=== PATIENT | male | born 1965 | race Caucasian/White ===

== ENCOUNTER → 2019-04-30 12:05 | Outpatient (CLI) | payer BC, SELFPAY ==
--- NOTE | 2019-04-30 12:10 | XR_ITS ---
XR knee LT 3V HISTORY: ITS.REASON: LT KNEE PAIN ORDERING PHYSICIAN: Terry Harrison MD PATIENT AGE: 54 years COMPARISON: None FINDINGS: No fracture or dislocation. No lytic or blastic change. Normal mineralization. No significant arthritic changes evident. No other significant findings IMPRESSION: Negative Knee
--- NOTE | 2019-04-30 12:10 | XR_ITS ---
XR knee RT 3V HISTORY: ITS.REASON: RT KNEE PAIN ORDERING PHYSICIAN: Terry Harrison MD PATIENT AGE: 54 years COMPARISON: None FINDINGS: No fracture or dislocation. No lytic or blastic change. Normal mineralization. There are minimal osteoarthritic changes of the medial with minimal osteophyte formation medially. IMPRESSION: Minimal osteoarthritic change otherwise negative
== END ==
PROVIDERS: PCP Family Medicine; Visit Provider Family Medicine
DX: M25.561 Pain in right knee (principal); M25.562 Pain in left knee
CPT/HCPCS: 73562

== ENCOUNTER → 2021-06-04 10:15 | Outpatient (CLI) | payer BC, SELFPAY | PROVIDERS: Visit Provider Internal Medicine Gastroenterology | DX: Z01.812 Encounter for preprocedural laboratory examination (principal) | CPT/HCPCS: U0003 ==

== ENCOUNTER 2021-06-05 07:25 | Day surgery (SDC) | payer BC, SELFPAY ==
[2021-06-02 12:34] VITALS: BMI 30.7
[2021-06-05 07:45] VITALS: BP 113/77; PULSE 59; RESP 18; TEMP 36.3; O2SAT 97
--- NOTE | 2021-06-05 08:36 | HMH.ANESCL ---
[facility] Anesthesia Checklist - Patient Identification Patient Identification: Arm Band - Structural Data Admitted From: Home Planned Operative Procedure/s: egd Consent for Planned Operative Procedure(s) Verified: Yes Verified Documents: Surgical Consent, History and Physical - NPO Status Verified Time NPO: 00:00 - Additional verifications Anesthesia Reactions: No - Airway Assessment C-Spine Mobility Assessed: Yes (mp2) TMJ Mobility Assessed: Yes Dentition: Good Dentition - Neurological Assessment Level of Consciousness: Awake, Alert - Anesthesia Plan Anesthesia Risk discussed: Yes Anesthesia Plan: Verified ASA Class: II Anesthesia Type: MAC [facility] History I have reviewed the patient's past medical history: Yes Medical History: Denies:: Cancer, Diabetes Mellitus Type 1, Diabetes Mellitus Type 2, Internal Pacemaker, MRSA, Seizures *Have you ever received a pneumonia vaccine?: No *Have you received a flu vaccine this season?: No Anesthesia experience/problems:: nac Other Surgeries: Yes: Colon Resection. No: Pacemaker Amputation: No Fractures: No - *Social History Last grade of school completed: 9th or 10th Smoking Status: Current every day smoker Tobacco Type: smokeless tobacco # Packs/Day (cigarettes): 1 Alcohol Intake: never Substance Use Type: denies use *Occupational Status:: unemployed Housing: house Household Members: spouse, family *Travel in the last 8 weeks: None Family Hx:: No significant family history
--- NOTE | 2021-06-05 08:39 | HMH.PROC ---
[facility] Procedure Note Procedure Note:: Upper Endoscopy Procedure Report: Esophagogastroduodenoscopy with cold biopsies and TTS balloon dilation Endoscopost: Alvaro Hogue II, MD Referring Physician: Terry Harrison MD Date of Procedure: June 05, 2021 Equipment: Olympus GIF 190 standard upper endoscope Sedation: MAC sedation Indications: Mr. Wilson is a 56-year-old gentleman who is here for diagnostic evaluation of his dysphagia. He has had a prior Schatzki's ring dilated in December 2016 by me. He has had recurrent symptoms of solid food dysphagia over the last 3 to 4 months especially with chicken and steak. He reports no heartburn or reflux. He does have a history of Crohn's disease which was diagnosed nearly 25 years ago. He had prior ileocolonic resection at that time. He is not on any maintenance of remission therapy. His colonoscopy in December 2016 revealed moderately active Crohn's disease of the small intestine/ileum. He is clinically asymptomatic and reports no abdominal pain, diarrhea or rectal bleeding. He has had no recent labs. His colonoscopy in December 2016 did reveal a single tubular adenoma which was removed. He does state that his paternal grandmother had colon cancer in her 60s. He has had a previous history of B12 deficiency and iron deficiency. Procedure: Prior to the procedure, a history and physical exam was performed, and patient's medications and allergies were reviewed. The risks, benefits and alternatives of the sedation and procedure were discussed with the patient. All questions were answered and informed consent was obtained. The patient was brought to the procedure room. Patient identification and proposed procedure were verified by the physician and the nurse. The patient was placed in a left lateral decubitus position and the scope was passed under direct vision. Throughout the procedure, the patient's blood pressure, pulse, and oxygen saturations were monitored continuously. The upper GI endoscopy was accomplished without difficulty. The patient tolerated the procedure well. Findings: The scope was passed directly into the upper esophagus and advanced to the third portion of the duodenum. The post bulbar duodenum and duodenal bulb were normal with normal mucosa and conniventes. The scope was withdrawn through a normal duodenal bulb and pylorus into the stomach. There was some minimal reactive gastropathy of the antrum. The remainder of the body and fundus of the stomach were grossly normal. Upon retroflexion there was a very small sliding 1 to 2 cm hiatal hernia. The scope was then withdrawn into the esophagus. There was a distal Schatzki's ring. There was no evidence of reflux esophagitis or Guerrero's. Biopsies were taken from the distal esophagus to rule out eosinophilic esophagitis. This Schatzki's ring and entire esophagus was dilated to 60 Maltese/20 mm with a TTS hydrostatic balloon with shattering of the Schatzki's ring. The remainder of the esophageal mucosa was normal. Impression: 1. Schatzki's ring dilated to 20 mm 2. Very small sliding hiatal hernia Plan: I would encourage PPI therapy (omeprazole x3 months). I will follow-up the biopsies. The patient should have clinical improvement of his swallowing. I will obtain CRP, B12 and iron studies today. I would also check routine CBC and chemistries because of his chronic Crohn's ileitis. He will be due for surveillance colonoscopy again in December 2021.
[2021-06-05 08:51] VITALS: BP 111/72; PULSE 65; RESP 18; TEMP 36.1; O2SAT 98
[2021-06-05 09:00] VITALS: BP 104/66; PULSE 53; RESP 18; O2SAT 92
--- NOTE | 2021-06-05 09:04 | SUR.PHASEII ---
PER MD REPORT, WILL OBTAIN LABS THIS MORNING BEFORE DISCHARGE. WILL AWAIT MD TO COME TO BEDSIDE TO VERIFY ORDERS. PT WAKING, AT BEDSIDE, NO C/O AT THIS TIME.
[2021-06-05 09:11] VITALS: BP 106/58; PULSE 57; RESP 18; O2SAT 93
[2021-06-05 09:36] VITALS: BP 105/64; PULSE 57; RESP 18; O2SAT 95
[2021-06-05 09:46] VITALS: O2SAT 97
--- NOTE | 2021-06-05 09:46 | SUR.PHASEII ---
LAB AT BEDSIDE
[2021-06-05 09:57] LABS: Basophils # 0.1 K/mm3 (0-0.2); Basophils % 1.2 % (0.1-2.0); Eosinophils # 0.3 K/mm3 (0.0-0.4); Eosinophils % 3.2 % (0.1-12.0); Hematocrit 45.8 % (42.0-52.0); Hemoglobin 15.5 g/dL (14.1-18.0); Lymphocytes # 2.6 K/mm3 (0.7-4.5); Lymphocytes % 32.6 % (10-50); Mean Corpuscular HGB Conc 33.9 g/dL (31.8-35.4); Mean Corpuscular Hemoglobin 30.9 pg (27.0-31.2); Mean Platelet Volume 11.3 fl (7.4-10.4); Monocytes # 0.5 K/mm3 (0.1-1.0); Monocytes % 5.7 % (1.7-9.3); Neutrophils # 4.5 K/mm3 (1.8-7.8); Neutrophils % 57.3 % (37.0-80.0); Platelet Count 168 K/mm3 (142-424); Red Blood Count 5.03 M/mm3 (4.60-6.20); Red Cell Distribution Width 13.7 % (11.5-17.5); White Blood Count 7.8 K/mm3 (4.8-10.8)
[2021-06-05 10:02] LABS: Chloride 103 mmol/L (98-107); Potassium 3.7 mmoL/L (3.5-5.1); Sodium 141 mmol/L (136-145)
[2021-06-05 10:05] LABS: Alanine Aminotransferase 47 U/L (12-78); Albumin Level 4.4 g/dl (3.5-5.0); Albumin/Globulin Ratio 1.8 (1.1-1.8); Alkaline Phosphatase 55 U/L (38-126); Anion Gap 12.7 mEq/L (5-15); Aspartate Amino Transferase 47 U/L (17-59); Bilirubin,Total 0.9 mg/dl (0.2-1.3); Blood Urea Nitrogen 12 mg/dl (9-20); Calcium 9.3 mg/dl (8.4-10.2); Carbon Dioxide 29 mmol/L (22.0-30.0); Creatinine Clearance Estimated 83 mL/min (50-200); Estimated Glomerular Filt Rate 63 ml/min (>60); GFR (African American) 76 ML/MIN (>60); Globulin 2.4 g/dL (1.3-3.2); Glucose 97 mg/dl (74-100); Iron 126 ug/dL (49-181); Total Protein,Serum 6.8 g/dl (6.3-8.2)
[2021-06-05 10:14] LABS: Total Iron Binding Capacity 347 ug/dL (261-462)
[2021-06-05 10:43] LABS: Ferritin 274 ng/ml (17.9-464)
[2021-06-05 10:55] LABS: Vitamin B12 423 pg/mL (239-931)
== END 2021-06-05 09:55 | disposition home or self-care (01) ==
LOC: OUTP 07:28
PROVIDERS: PCP Family Medicine; Visit Provider Internal Medicine Gastroenterology
PROC: 0DJ08ZZ Inspection of Upper Intestinal Tract, Via Natural or Artificial Opening Endoscopic (ICD-10-PCS; CPT 43235; principal; 2021-06-05 08:30)
DX: K22.2 Esophageal obstruction (principal); K44.9 Diaphragmatic hernia without obstruction or gangrene; Z86.010 Personal history of colon polyps; K50.10 Crohn's disease of large intestine without complications; D50.9 Iron deficiency anemia, unspecified; E53.9 Vitamin B deficiency, unspecified; Z90.49 Acquired absence of other specified parts of digestive tract; Z72.0 Tobacco use
CPT/HCPCS: 43239; 43249; 36415; 80053; 82607; 82728; 83540; 83550; 85025; 86140; C1726